=== PATIENT | female | born 1965 | race Caucasian/White ===

== ENCOUNTER 2018-04-27 08:30 | Inpatient (IN) | payer OTHER ==
[~2018-04-27] VITALS: Ht 162.6 cm; Wt 78.5 kg
[2018-04-28] MEDS ORDERED: SYNTHROID100 MCG PO ×2 (12:55→15:05)
[2018-04-28] MEDS ORDERED: SYNTH PO (12:55)
[2018-04-28] MEDS ORDERED: VERAPAMIL ER120 MG PO (12:56)
[2018-04-28] MEDS ORDERED: PROTON PO (12:56)
[2018-04-28] MEDS ORDERED: FORTAMET500 MG PO (12:56)
[2018-04-28] MEDS ORDERED: ZANTAC300 MG PO (12:57)
[2018-04-28] MEDS ORDERED: PROZAC20 MG PO (12:57)
[2018-04-28] MEDS ORDERED: ZYRTEC10 M3 PO (12:57)
[2018-04-28] MEDS ORDERED: SIMVASTATIN10 MG PO (15:05)
[2018-04-28] MEDS ORDERED: SYNTHROID PO (15:05)
[2018-04-28] MEDS ORDERED: PROTONIX PO (15:05)
== END 2018-05-01 11:48 | disposition home or self-care (01) | DRG 743 ==
LOC: O/R 04-30 05:34 → SURH 04-30 05:34
PROVIDERS: ADMIT Obstetrics & Gynecology Gynecologic Oncology
PROC: 0UT74ZZ Resection of Bilateral Fallopian Tubes, Percutaneous Endoscopic Approach (ICD-10-PCS; 2018-04-30)
PROC: 0UT94ZZ Resection of Uterus, Percutaneous Endoscopic Approach (ICD-10-PCS; principal; 2018-04-30 14:00)
DX: D25.1 Intramural leiomyoma of uterus (principal); N83.8 Other noninflammatory disorders of ovary, fallopian tube and broad ligament

== ENCOUNTER 2021-03-26 11:25 | Outpatient (CLI) | payer OTHER ==
[~2021-03-26 11:25] MED LIST: FORTAMET500 MG PO; PROTON PO; PROTONIX PO; PROZAC20 MG PO; SIMVASTATIN10 MG PO; SYNTH PO; SYNTHROID PO; SYNTHROID100 MCG PO; VERAPAMIL ER120 MG PO; ZANTAC300 MG PO; ZYRTEC10 M3 PO
== END 2021-03-26 11:32 | disposition home or self-care (01) ==
LOC: SONOGRAMA 11:25
PROVIDERS: ATTEND Pathology Anatomic Pathology & Clinical Pathology
DX: D11.0 Benign neoplasm of parotid gland (principal)